=== PATIENT | female | born 1995 | race Caucasian/White ===

== ENCOUNTER → 2021-01-29 | Outpatient (CLI) | payer OTHER | LOC: RAD 15:09 | PROVIDERS: ATTEND Nurse Practitioner | DX: M43.8X4 Other specified deforming dorsopathies, thoracic region (principal); M25.512 Pain in left shoulder; V89.2XXA Person injured in unspecified motor-vehicle accident, traffic, initial encounter; Y93.89 Activity, other specified; Y92.89 Other specified places as the place of occurrence of the external cause; Y99.8 Other external cause status ==

== ENCOUNTER → 2021-02-06 | Outpatient (CLI) | payer OTHER | LOC: MRI 13:44 | PROVIDERS: ATTEND Nurse Practitioner | DX: S22.048A Other fracture of fourth thoracic vertebra, initial encounter for closed fracture (principal); S22.058A Other fracture of T5-T6 vertebra, initial encounter for closed fracture; R60.0 Localized edema; X58.XXXA Exposure to other specified factors, initial encounter; Y93.89 Activity, other specified; Y92.89 Other specified places as the place of occurrence of the external cause; Y99.8 Other external cause status ==

== ENCOUNTER 2021-06-26 18:41 | Emergency (ER) | payer OTHER ==
[~2021-06-26] VITALS: Ht 160 cm; Wt 44.5 kg
[2021-06-26] MEDS ORDERED: PREDNISONE 20 M20 MG PO (19:51)
[2021-06-26] MEDS ORDERED: PROMETH-CODEIN 65 ML PO (19:51)
[2021-06-26 20:00] VITALS: BP 105/74
== END 2021-06-26 20:02 | disposition home or self-care (01) ==
LOC: ER 18:41
PROVIDERS: Physician Assistant
DX: B34.9 Viral infection, unspecified (principal); Z20.822 Contact with and (suspected) exposure to COVID-19; R05.9 Cough, unspecified

== ENCOUNTER 2021-09-01 21:06 | Emergency (ER) | payer OTHER ==
[~2021-09-01] VITALS: Ht 188 cm; Wt 72.6 kg
[~2021-09-01 21:06] MED LIST: PREDNISONE 20 M20 MG PO; PROMETH-CODEIN 65 ML PO
[2021-09-01 21:27] VITALS: BP 108/51
[2021-09-01 21:36] LABS: URINE BILIRUBIN NEGATIVE (Negative); URINE BLOOD NEGATIVE (Negative); URINE CLARITY CLEAR; URINE COLOR YELLOW; URINE GLUCOSE-RANDOM* NEGATIVE (Negative); URINE KETONES NEGATIVE (Negative); URINE LEUKOCYTES-REFLEX NEGATIVE (Negative); URINE NITRITE-REFLEX NEGATIVE (Negative); URINE PROTEIN (DIPSTICK) NEGATIVE (Negative); URINE SPECIFIC GRAVITY >= 1.030 (1.005-1.035); URINE UROBILINOGEN 0.2 E.U./dl (0.2-1.0)
[2021-09-01 21:57] LABS: ABSOLUTE NEUTROPHILS 3.7 thou/uL (1.4-8.2); BASOPHILS 0.7 % (0.0-2.0); EOSINOPHILS 1.8 % (0.0-3.0); HEMATOCRIT 37.7 % (37.0-47.0); HEMOGLOBIN 12.3 gm/dL (12.0-15.0); LYMPHOCYTES 35.1 % (24.0-44.0); MCHC 32.6 g/dL (28.0-37.0); MONOCYTES 6.2 % (1.0-8.0); POLYS 56.2 % (36.0-66.0); RBC 4.38 mil/uL (4.20-5.00); RDW 14.5 % (10.5-14.5); WBC 6.6 thou/uL (4.0-11.0)
[2021-09-01 21:58] LABS: AMP/METHAMP Negative (Negative); BARBITURATES Negative (Negative); BENZODIAZEPINES POSITIVE (Negative); COCAINE Negative (Negative); METHADONE Negative (Negative); OPIATES Negative (Negative); PCP Negative (Negative)
[2021-09-01 22:04] LABS: PLATELET COUNT 205 thou/uL (150-400)
[2021-09-01 22:06] LABS: ANION GAP 6 mmol/L (7-16); BUN 20 mg/dL (7-18); CALCIUM 8.9 mg/dL (8.5-10.1); CHLORIDE 106 mmol/L (98-107); CO2 27 mmol/L (21-32); CREATININE 0.8 mg/dL (0.6-1.0); GLUCOSE 83 mg/dL (74-106); POTASSIUM 3.8 mmol/L (3.5-5.1); SODIUM 139 mmol/L (136-145)
[2021-09-01 22:17] LABS: ALBUMIN 3.9 g/dL (3.4-5.0); SGOT 14 U/L (15-37); SGPT 19 U/L (14-59); TOTAL BILIRUBIN 0.4 mg/dL (0.2-1.0); TOTAL PROTEIN 7.3 g/dL (6.4-8.2)
[2021-09-01] MEDS ORDERED: ZOFRAN ODT4 MG PO (22:44)
--- NOTE | 2021-09-02 07:26 | EKG ---
[address] [address] ELECTROCARDIOGRAM REPORT Name: NAHUM MIKE Room #: DEP [facility]#: [id number] Admission: 09/01/21 Attend Phys: Discharge: 09/01/21 Date of : [birth year] Report #: [id number] [facility] ED Test Date: 2021-09-01 Test Time: 21:14:43 Pat Name: NAHUM MIKE Department: Room: Gender: F [facility] 1995 Requested By: Екатерина Naranjo Order Number: [id number] MD: Silver Jensen Measurements Intervals [place] Rate: 49 P: 32 MI: 172 QRS: 77 QRSD: 97 T: 48 QT: 442 QTc: 400 Interpretive Statements Sinus bradycardia No previous ECG available for comparison Electronically Signed On 09-02-2021 7:26:23 KIER PLEATER by Silver Jensen [email or web address] <ELECTRONICALLY SIGNED> By: Silver Jensen MD, [facility] 09/02/21 0726 2114 Silver Jensen MD, FACC /EPI
== END 2021-09-01 23:33 | disposition home or self-care (01) ==
LOC: ER 21:06
PROVIDERS: Nurse Practitioner
DX: R00.1 Bradycardia, unspecified (principal); R11.0 Nausea

== ENCOUNTER 2021-10-07 15:16 | Emergency (ER) | payer OTHER ==
[~2021-10-07] VITALS: Ht 160 cm; Wt 49.9 kg
[~2021-10-07 15:16] MED LIST changes: +ZOFRAN ODT4 MG PO
[2021-10-07 15:44] LABS: ABSOLUTE NEUTROPHILS 9.1 thou/uL (1.4-8.2); BASOPHILS 0.4 % (0.0-2.0); EOSINOPHILS 0.4 % (0.0-3.0); HEMATOCRIT 38.3 % (37.0-47.0); HEMOGLOBIN 12.4 gm/dL (12.0-15.0); LYMPHOCYTES 15.1 % (24.0-44.0); MCH 27.4 pg (26.0-34.0); MCHC 32.3 g/dL (28.0-37.0); MCV 84.7 fL (80.0-100.0); MONOCYTES 4.8 % (1.0-8.0); PLATELET COUNT 319 thou/uL (150-400); POLYS 79.3 % (36.0-66.0); RBC 4.52 mil/uL (4.20-5.00); WBC 11.5 thou/uL (4.0-11.0)
[2021-10-07 15:53] LABS: CALCIUM 8.8 mg/dL (8.5-10.1); CREATININE 0.6 mg/dL (0.6-1.0); POTASSIUM 3.8 mmol/L (3.5-5.1)
[2021-10-07 15:59] LABS: ALBUMIN 3.7 g/dL (3.4-5.0); DIRECT BILIRUBIN 0.1 mg/dL (<0.1-0.2); TOTAL BILIRUBIN 0.7 mg/dL (0.2-1.0); TOTAL PROTEIN 7.5 g/dL (6.4-8.2)
[2021-10-07] MEDS ORDERED: TRAZODONE HCL50 MG PO (16:57)
[2021-10-07] MEDS ORDERED: DEPAKOTE500 MG PO (16:57)
[2021-10-07] MEDS ORDERED: LEXAPRO 10 MG T10 MG PO (16:57)
[2021-10-07] MEDS ORDERED: HYDROXYZINE HCL25 M2 PO (16:58)
[2021-10-07 17:18] LABS: ICTOTEST (BILI CONFIRMATORY) Negative (Negative); URINE BILIRUBIN NEGATIVE (Negative); URINE BLOOD 1+ (Negative); URINE CLARITY CLEAR; URINE COLOR YELLOW; URINE GLUCOSE-RANDOM* NEGATIVE (Negative); URINE KETONES 1+ (Negative); URINE LEUKOCYTES-REFLEX NEGATIVE (Negative); URINE NITRITE-REFLEX NEGATIVE (Negative); URINE PROTEIN (DIPSTICK) 2+ (Negative); URINE SPECIFIC GRAVITY >= 1.030 (1.005-1.035); URINE UROBILINOGEN 0.2 E.U./dl (0.2-1.0)
[2021-10-07 17:34] LABS: SQUAMOUS >10 Many /LPF (0-3)
[2021-10-07 17:35] LABS: CASTS None Seen /LPF (None Seen); CRYSTALS None Seen /LPF (None Seen); MUCUS >6 Heavy strn/LPF (None Seen); URINE RBC 3-10 Few /HPF (NONE SEEN); URINE WBC-REFLEX 0-5 Rare /HPF (0-5)
[2021-10-07] MEDS ORDERED: ZOFRAN ODT4 MG PO (19:41)
[2021-10-07 19:46] VITALS: BP 112/65
== END 2021-10-07 19:48 | disposition home or self-care (01) ==
LOC: ER 15:16
PROVIDERS: Emergency Medicine
DX: K52.9 Noninfective gastroenteritis and colitis, unspecified (principal); Z79.899 Other long term (current) drug therapy